=== PATIENT | male | born 1995 | race Hispanic/Latino ===

== ENCOUNTER 2019-01-27 13:00 | Outpatient (RCR) | payer BC | END 2019-01-28 | LOC: PT 13:00 | PROVIDERS: ATTEND Specialist | DX: S71.102A Unspecified open wound, left thigh, initial encounter (principal); W34.00XA Accidental discharge from unspecified firearms or gun, initial encounter; M25.562 Pain in left knee; M62.81 Muscle weakness (generalized); R26.2 Difficulty in walking, not elsewhere classified ==

== ENCOUNTER 2019-02-13 13:00 | Outpatient (RCR) | payer BC | END 2019-02-28 | LOC: PT 13:00 | PROVIDERS: ATTEND Specialist | DX: S71.102A Unspecified open wound, left thigh, initial encounter (principal); M25.562 Pain in left knee; M62.81 Muscle weakness (generalized); R26.2 Difficulty in walking, not elsewhere classified | CPT/HCPCS: 97110 ×4; G0283 ×2 ==